=== PATIENT | male | born 1985 | race African-American/Black ===

== ENCOUNTER 2018-04-09 10:33 | Emergency (ER) | payer OTHER ==
[~2018-04-09] VITALS: Ht 172.7 cm; Wt 99.8 kg
== END 2018-04-09 15:43 | disposition home or self-care (01) ==
LOC: ER 10:33
DX: N39.0 Urinary tract infection, site not specified (principal); R10.32 Left lower quadrant pain

== ENCOUNTER 2018-06-23 10:24 | Emergency (ER) | payer OTHER ==
[~2018-06-23] VITALS: Ht 172.7 cm; Wt 99.3 kg
== END 2018-06-23 14:31 | disposition home or self-care (01) ==
LOC: ER 10:24
DX: K52.9 Noninfective gastroenteritis and colitis, unspecified (principal)